=== PATIENT | female | born 1930 | race Caucasian/White ===

== ENCOUNTER 2017-10-09 10:49 | Inpatient (IN) | payer OTHER ==
[~2017-10-09] VITALS: Ht 154.9 cm; Wt 31.8 kg
[2017-10-09] MEDS ORDERED: NAMENDA10 MG (12:02)
[2017-10-09] MEDS ORDERED: ZANTAC150 M3 (12:02)
[2017-10-09] MEDS ORDERED: TOPROL XL50 M1 (12:03)
[2017-10-09] MEDS ORDERED: SINGULAIR10 MG (12:03)
[2017-10-09] MEDS ORDERED: PROZAC40 MG (12:04)
[2017-10-09] MEDS ORDERED: ZITHROMAX200 MG (12:05)
[2017-10-17] MEDS ORDERED: PROTEINEX WC L887 ML GT (11:18)
== END 2017-10-17 15:34 | disposition home or self-care (01) | DRG 871 ==
LOC: ER 10:49 → MEDI 16:01 → SEC-K 16:01 → MEDI 10-10 10:33
PROC: 4A033R1 Measurement of Arterial Saturation, Peripheral, Percutaneous Approach (ICD-10-PCS; 2017-10-09)
PROC: 0DH63UZ Insertion of Feeding Device into Stomach, Percutaneous Approach (ICD-10-PCS; principal; 2017-10-15)
DX: A41.9 Sepsis, unspecified organism (principal); L89.153 Pressure ulcer of sacral region, stage 3; N39.0 Urinary tract infection, site not specified; E87.1 Hypo-osmolality and hyponatremia; E46 Unspecified protein-calorie malnutrition; E86.0 Dehydration; G30.8 Other Alzheimer's disease; F02.80 Dementia in other diseases classified elsewhere, unspecified severity, without behavioral disturbance, psychotic disturbance, mood disturbance, and anxiety; Z74.01 Bed confinement status; L89.152 Pressure ulcer of sacral region, stage 2; B96.1 Klebsiella pneumoniae [K. pneumoniae] as the cause of diseases classified elsewhere; B95.2 Enterococcus as the cause of diseases classified elsewhere; R13.19 Other dysphagia; Z16.12 Extended spectrum beta lactamase (ESBL) resistance; Z78.1 Physical restraint status

== ENCOUNTER 2017-12-11 08:07 | Inpatient (IN) | payer OTHER ==
[~2017-12-11] VITALS: Ht 149.9 cm; Wt 34.0 kg
[~2017-12-11 08:07] MED LIST: NAMENDA10 MG; PROTEINEX WC L887 ML GT; PROZAC40 MG; SINGULAIR10 MG; TOPROL XL50 M1; ZANTAC150 M3; ZITHROMAX200 MG
[2017-12-11] MEDS ORDERED: DESYREL (08:38)
[2017-12-11] MEDS ORDERED: SE-TAN PLUS CA1 EACH (08:39)
[2017-12-11] MEDS ORDERED: TOPROL XL50 M1 (08:40)
== END 2017-12-12 15:52 | disposition home or self-care (01) | DRG 394 ==
LOC: ER 08:07 → MEDJ 12:16 → SEC-K 12:16 → MEDJ 14:19
PROVIDERS: Specialist
PROC: 0DH63UZ Insertion of Feeding Device into Stomach, Percutaneous Approach (ICD-10-PCS; principal; 2017-12-11 16:00)
PROC: BW21ZZZ Computerized Tomography (CT Scan) of Abdomen and Pelvis (ICD-10-PCS; 2017-12-12)
DX: K94.23 Gastrostomy malfunction (principal); E46 Unspecified protein-calorie malnutrition; Z74.01 Bed confinement status; G30.1 Alzheimer's disease with late onset; F02.80 Dementia in other diseases classified elsewhere, unspecified severity, without behavioral disturbance, psychotic disturbance, mood disturbance, and anxiety; Y83.3 Surgical operation with formation of external stoma as the cause of abnormal reaction of the patient, or of later complication, without mention of misadventure at the time of the procedure; Y92.128 Other place in nursing home as the place of occurrence of the external cause; R13.19 Other dysphagia; E86.0 Dehydration

== ENCOUNTER 2018-01-26 11:14 | Emergency (ER) | payer OTHER ==
[~2018-01-26] VITALS: Ht 154.9 cm; Wt 36.3 kg
[~2018-01-26 11:14] MED LIST changes: +DESYREL; +SE-TAN PLUS CA1 EACH
== END 2018-01-26 12:01 | disposition home or self-care (01) ==
LOC: ER 11:14
DX: K94.29 Other complications of gastrostomy (principal); Z43.1 Encounter for attention to gastrostomy

== ENCOUNTER 2018-02-27 21:33 | Emergency (ER) | payer OTHER ==
[~2018-02-27] VITALS: Ht 152.4 cm; Wt 40.8 kg
== END 2018-02-28 11:32 | disposition home or self-care (01) ==
LOC: ER 21:33
DX: K94.29 Other complications of gastrostomy (principal); Z43.1 Encounter for attention to gastrostomy

== ENCOUNTER 2018-10-31 14:48 | Inpatient (IN) | payer OTHER ==
[~2018-10-31] VITALS: Ht 154.9 cm; Wt 27.2 kg
[2018-10-31] MEDS ORDERED: PRE PROTEIN1 EACH (15:09)
[2018-10-31] MEDS ORDERED: PROTONIX40 MG (15:09)
[2018-10-31] MEDS ORDERED: ATACAND16 MG (15:10)
[2018-11-07] MEDS ORDERED: CLONAZEPAM0.25 MG PO (18:10)
== END 2018-11-07 19:56 | disposition home or self-care (01) | DRG 640 ==
LOC: ER 14:48 → MEDI 11-01 15:31 → MEDJ 11-01 15:31 → MEDI 11-07 19:56
PROVIDERS: ADMIT Internal Medicine
PROC: 3E0F7GC Introduction of Other Therapeutic Substance into Respiratory Tract, Via Natural or Artificial Opening (ICD-10-PCS; principal; 2018-11-01)
PROC: B246ZZZ Ultrasonography of Right and Left Heart (ICD-10-PCS; 2018-11-01)
DX: E86.0 Dehydration (principal); A41.89 Other specified sepsis; F02.81 Dementia in other diseases classified elsewhere, unspecified severity, with behavioral disturbance; N39.0 Urinary tract infection, site not specified; J22 Unspecified acute lower respiratory infection; E87.1 Hypo-osmolality and hyponatremia; E87.5 Hyperkalemia; Z74.01 Bed confinement status; G30.8 Other Alzheimer's disease; R63.0 Anorexia; R13.19 Other dysphagia; L89.151 Pressure ulcer of sacral region, stage 1

== ENCOUNTER 2019-04-30 00:32 | Emergency (ER) | payer OTHER ==
[~2019-04-30] VITALS: Ht 152.4 cm; Wt 40.8 kg
[~2019-04-30 00:32] MED LIST changes: +ATACAND16 MG; +CLONAZEPAM0.25 MG PO; +PRE PROTEIN1 EACH; +PROTONIX40 MG
== END 2019-04-30 16:26 | disposition home or self-care (01) ==
LOC: ER 00:32
DX: Z43.1 Encounter for attention to gastrostomy (principal); R00.0 Tachycardia, unspecified; G25.2 Other specified forms of tremor

== ENCOUNTER 2019-06-21 21:50 | Inpatient (IN) | payer OTHER ==
[~2019-06-21] VITALS: Ht 154.9 cm; Wt 43.1 kg
[2019-06-21] MEDS ORDERED: KEPPRA500 MG (22:19)
--- NOTE | 2019-06-21 22:19 | NUR ---
PTE VIENE POR AMBULANCIA, FAMILIAR DE PTE INDICA QUE PTE SE LE SALIO TUBO PEC. PTE ALERTA
--- NOTE | 2019-06-22 05:40 | NUR ---
;'PÉREZ INTENTA INSERTAR SONDA PARA ALIMENTACION PEG. EL MISMO NO FUE EXITOSO. REFIERE DEJARA PACIENTE PARA SER CONSULTADA.
--- NOTE | 2019-06-22 08:44 | NUR ---
SE RECIBE PTE DEL TURNO ANTERIOR, ALERTA CON BUEN PATRON RESPIRATORIO, PIEL TIBIA AL TACTO. PTE EVALUADA POR DR. GIL PARA INSERCION DE TUBO PEG JUNTO AL RN. Elie JACKMAN.
--- NOTE | 2019-06-22 09:07 | NUR ---
SE ASISTE A DR. GIL A LA INSERCION DE GASTROSTOMIA DE PTE VIMAL LA MISMA NO FUE EFECTIVA.
== END 2019-06-26 17:58 | disposition home or self-care (01) | DRG 394 ==
LOC: ER 21:50 → SURH 06-22 19:42
PROVIDERS: ADMIT Internal Medicine
PROC: 0DP68UZ Removal of Feeding Device from Stomach, Via Natural or Artificial Opening Endoscopic (ICD-10-PCS; principal; 2019-06-22)
PROC: 0DH63UZ Insertion of Feeding Device into Stomach, Percutaneous Approach (ICD-10-PCS; 2019-06-22)
PROC: 3E0G76Z Introduction of Nutritional Substance into Upper GI, Via Natural or Artificial Opening (ICD-10-PCS; 2019-06-25)
DX: K94.23 Gastrostomy malfunction (principal); E87.1 Hypo-osmolality and hyponatremia; J90 Pleural effusion, not elsewhere classified; E44.0 Moderate protein-calorie malnutrition; G30.1 Alzheimer's disease with late onset; F02.80 Dementia in other diseases classified elsewhere, unspecified severity, without behavioral disturbance, psychotic disturbance, mood disturbance, and anxiety; R13.12 Dysphagia, oropharyngeal phase; Z74.01 Bed confinement status